=== PATIENT | female | born 1935 | race Caucasian/White ===

== ENCOUNTER 2017-06-04 18:29 | Emergency (ER) | payer OTHER ==
[~2017-06-04] VITALS: Ht 160 cm; Wt 56.7 kg
[~2017-06-04 18:29] MED LIST: ALENDRONATE SOD70 MG PO; AMLODIPINE BESYL5 MG PO; ATIVAN0.5 MG PO; ATORVASTATIN CA80 MG PO; ATROPINE PO; CIPRO500 MG PO; DIPHEN PO; FLONASE16 G1 BOTH NARES; FLUTICASONE PRO16 GM BOTH NARES; HYDROCHLOROTHIA25 MG PO; KEFLEX500 MG PO; LEXAPRO10 MG PO; LOSARTAN POTAS100 MG PO; METOPROLOL SUCC25 MG PO; METOPROLOL SUCC50 MG PO; NEURONTIN300 MG PO; NEXIUM40 MG PO; ST. JOSEPH ASPI81 MG PO; VALTREX50 MG/ML PO; VITAMIN D2000 INTUN PO; VITAMIN D22000 UNIT PO; VOLTAREN 1% GE100 GM TP
[2017-06-04 19:09] LABS: HEMATOCRIT 42.4 % (36.0-46.0); MCHC 33.7 G/DL (30.0-36.0); MCV 88.9 FL (83-99); MEAN PLAT.VOLUME 10.9 uM^3 (9.5-12.4); PLATELET COUNT 257 K/uL (156-360); RBC DIS.WIDTH-CV 13.2 % (11.8-14.6); RBC DIS.WIDTH-SD 42.9 % (39-53); RED BLOOD COUNT 4.77 M/uL (3.80-5.20); WHITE BLOOD COUNT 6.6 K/uL (4.1-10.2)
[2017-06-04 19:17] LABS: CHLORIDE 108 mEq/L (99-109); POTASSIUM 3.3 mEq/L (3.7-5.4); SODIUM 138 mEq/L (136-147)
[2017-06-04 19:19] LABS: GLUCOSE 106 mg/dL (70-99)
[2017-06-04 19:20] LABS: ANION GAP 7 MEQ/L (2-14)
[2017-06-04 19:21] LABS: TOTAL BILIRUBIN 0.3 mg/dL (0.0-1.0)
[2017-06-04 19:22] LABS: ALKALINE PHOSPHATASE 78 IU/L (3-129)
[2017-06-04 19:23] LABS: GFR ESTIMATE (CALCULATED) > 59 mL/min/
[2017-06-04 19:24] LABS: UREA NITROGEN (BUN) 14 mg/dL (9-23)
[2017-06-04 19:29] LABS: TROP-I INTERPRETATION NEGATIVE; TROPONIN-I < 0.01 ng/mL (0.0-0.30)
[2017-06-04 20:18] VITALS: BP 124/94
== END 2017-06-04 20:47 | disposition home or self-care (01) ==
LOC: EME 18:29
PROVIDERS: Nurse Practitioner Family
DX: I10 Essential (primary) hypertension (principal); R42 Dizziness and giddiness; R05 Cough; R09.82 Postnasal drip; Z79.82 Long term (current) use of aspirin
CPT/HCPCS: 80053; 84484; 85027; 93005; 99281; 99284

== ENCOUNTER 2017-10-05 06:09 | Inpatient (IN) | payer OTHER ==
[~2017-10-05] VITALS: Ht 160 cm; Wt 51.3 kg
[2017-10-05 07:07] LABS: BASOPHIL (%) 0.5 % (0-1); BASOPHIL COUNT 0.1 K/uL (0-0.1); EOSINOPHIL (%) 0.2 % (0-5); HEMATOCRIT 45.7 % (36.0-46.0); HEMOGLOBIN 15.9 G/DL (11.9-15.5); IMMATURE GRANULOCYTE (%) 0.4 % (0.0-0.7); LYMPHOCYTE (%) 9.9 % (15-42); LYMPHOCYTE COUNT 1.2 K/uL (1.0-2.8); MCH 30.5 PG (29.0-34.0); MCHC 34.8 G/DL (30.0-36.0); MCV 87.7 FL (83-99); MONOCYTE (%) 5.8 % (3-12); MONOCYTE COUNT 0.7 K/uL (0-0.8); NEUTROPHIL (%) 83.2 % (45-76); NEUTROPHIL COUNT 9.9 K/uL (1.8-6.4); PLATELET COUNT 354 K/uL (156-360); RBC DIS.WIDTH-CV 12.7 % (11.8-14.6); RBC DIS.WIDTH-SD 40.8 % (39-53); RED BLOOD COUNT 5.21 M/uL (3.80-5.20); WHITE BLOOD COUNT 11.9 K/uL (4.1-10.2)
[2017-10-05 07:14] LABS: INTER. NORMALIZED RATIO 1.1
[2017-10-05 07:42] LABS: ALBUMIN 4.4 G/DL (3.2-4.8); ALKALINE PHOSPHATASE 141 IU/L (3-129); ALT (GPT) 28 IU/L (3-49); AST (GOT) 32 IU/L (2-34); CHLORIDE 98 MEQ/L (99-109); CREATININE 0.6 MG/DL (0.6-1.3); GFR ESTIMATE (CALCULATED) > 59 mL/min/; GLUCOSE 140 mg/dL (70-99); LIPASE 38 U/L (1.0-51.0); SODIUM 136 MEQ/L (136-147); TOTAL BILIRUBIN 1.2 MG/DL (0.0-1.0); TOTAL PROTEIN 7.7 G/DL (6.4-8.3); UREA NITROGEN (BUN) 10 mg/dL (9-23)
[2017-10-05 09:03] LABS: APPEARANCE SL.HAZY ((CLEAR)); BILIRUBIN NEGATIVE; BLOOD NEGATIVE; COLOR YELLOW ((YELLOW)); GLUCOSE (STRIP) NEGATIVE; KETONES NEGATIVE; LEUKOCYTES TRACE; NITRITE NEGATIVE; PROTEIN (STRIP) 30; UROBILINOGEN 0.2 MG/DL (0.2-1.0)
[2017-10-05 09:11] LABS: BACTERIA RARE /HPF; CALCIUM OXALATE CRYSTALS 1+ /HPF; EPITHELIAL CELLS RARE /HPF; MUCUS TRACE /LPF; RED BLOOD CELLS 0-5 /HPF (0-5); WHITE BLOOD CELLS 0-5 /HPF (0-5)
[2017-10-05] MEDS ORDERED: CARBAMAZEPINE100 M2 PO (11:09)
[2017-10-05] MEDS ORDERED: ESCITALOPRAM OXA5 MG PO (11:10)
[2017-10-05 19:30] VITALS: BP 146/79
[2017-10-05 23:57] VITALS: BP 152/83
[2017-10-06 05:05] VITALS: BP 144/82
[2017-10-06 05:59] LABS: HEMATOCRIT 41.8 % (36.0-46.0); HEMOGLOBIN 13.6 G/DL (11.9-15.5); MCHC 32.5 G/DL (30.0-36.0); MCV 92.3 FL (83-99); PLATELET COUNT 343 K/uL (156-360); RBC DIS.WIDTH-CV 13.3 % (11.8-14.6); RBC DIS.WIDTH-SD 44.9 % (39-53); RED BLOOD COUNT 4.53 M/uL (3.80-5.20); WHITE BLOOD COUNT 13.6 K/uL (4.1-10.2)
[2017-10-06 07:12] LABS: CREATININE 0.6 MG/DL (0.6-1.3); GFR ESTIMATE (CALCULATED) > 59 mL/min/; GLUCOSE 185 mg/dL (70-99); POTASSIUM 3.8 MEQ/L (3.7-5.4); UREA NITROGEN (BUN) 9 mg/dL (9-23)
[2017-10-06 07:13] LABS: MAGNESIUM 1.7 mg/dl (1.3-2.7); PHOSPHORUS 2.5 mg/dL (2.5-4.9)
[2017-10-06 07:19] LABS: CHLORIDE 109 MEQ/L (99-109); SODIUM 143 MEQ/L (136-147)
[2017-10-06 08:15] VITALS: BP 144/89
[2017-10-06 11:42] VITALS: BP 130/71
[2017-10-06 16:14] VITALS: BP 156/99
[2017-10-06 20:15] VITALS: BP 124/88
[2017-10-06 22:47] VITALS: BP 178/94
[2017-10-07] VITALS (7 sets, daily range): BP systolic 133–191; BP diastolic 77–103
[2017-10-07 05:47] LABS: HEMATOCRIT 35.7 % (36.0-46.0); HEMOGLOBIN 11.7 G/DL (11.9-15.5); MCH 29.7 PG (29.0-34.0); MCHC 32.8 G/DL (30.0-36.0); MCV 90.6 FL (83-99); PLATELET COUNT 292 K/uL (156-360); RBC DIS.WIDTH-CV 13.5 % (11.8-14.6); RED BLOOD COUNT 3.94 M/uL (3.80-5.20); WHITE BLOOD COUNT 12.2 K/uL (4.1-10.2)
[2017-10-07 06:20] LABS: ALBUMIN 2.9 G/DL (3.2-4.8); ALT (GPT) 41 IU/L (3-49); AST (GOT) 23 IU/L (2-34); CHLORIDE 112 MEQ/L (99-109); CREATININE 0.4 MG/DL (0.6-1.3); DIRECT BILIRUBIN 0.2 mg/dL (0.0-0.3); GFR ESTIMATE (CALCULATED) > 59 mL/min/; GLUCOSE 129 mg/dL (70-99); POTASSIUM 3.4 MEQ/L (3.7-5.4); SODIUM 141 MEQ/L (136-147); UREA NITROGEN (BUN) 8 mg/dL (9-23)
[2017-10-07 06:21] LABS: ALKALINE PHOSPHATASE 73 IU/L (3-129); TOTAL BILIRUBIN 0.6 MG/DL (0.0-1.0); TOTAL PROTEIN 5.4 G/DL (6.4-8.3)
[2017-10-08 03:21] VITALS: BP 164/80; BP 167/80
[2017-10-08 06:02] LABS: BASOPHIL (%) 0.6 % (0-1); EOSINOPHIL (%) 0.8 % (0-5); EOSINOPHIL COUNT 0.1 K/uL (0-0.3); HEMATOCRIT 32.4 % (36.0-46.0); HEMOGLOBIN 10.9 G/DL (11.9-15.5); IMMATURE GRANULOCYTE (%) 0.3 % (0.0-0.7); LYMPHOCYTE (%) 10.9 % (15-42); LYMPHOCYTE COUNT 0.7 K/uL (1.0-2.8); MCH 30.6 PG (29.0-34.0); MCHC 33.6 G/DL (30.0-36.0); MONOCYTE (%) 8.9 % (3-12); MONOCYTE COUNT 0.6 K/uL (0-0.8); NEUTROPHIL (%) 78.5 % (45-76); PLATELET COUNT 248 K/uL (156-360); RBC DIS.WIDTH-CV 13.7 % (11.8-14.6); RBC DIS.WIDTH-SD 46.3 % (39-53); RED BLOOD COUNT 3.56 M/uL (3.80-5.20); WHITE BLOOD COUNT 6.3 K/uL (4.1-10.2)
[2017-10-08 06:27] LABS: CHLORIDE 114 MEQ/L (99-109); CREATININE 0.4 MG/DL (0.6-1.3); GFR ESTIMATE (CALCULATED) > 59 mL/min/; GLUCOSE 103 mg/dL (70-99); POTASSIUM 3.5 MEQ/L (3.7-5.4); SODIUM 142 MEQ/L (136-147); UREA NITROGEN (BUN) 9 mg/dL (9-23)
[2017-10-08 08:16] VITALS: BP 161/81
[2017-10-08 11:50] VITALS: BP 178/87
[2017-10-08 16:16] VITALS: BP 146/73
[2017-10-08 19:16] VITALS: BP 185/86
[2017-10-08 22:14] VITALS: BP 164/86
[2017-10-09 04:01] VITALS: BP 154/88
[2017-10-09 05:38] LABS: HEMATOCRIT 33.9 % (36.0-46.0); HEMOGLOBIN 10.9 G/DL (11.9-15.5); MCHC 32.2 G/DL (30.0-36.0); MCV 90.2 FL (83-99); PLATELET COUNT 261 K/uL (156-360); RBC DIS.WIDTH-CV 13.4 % (11.8-14.6); RBC DIS.WIDTH-SD 44.8 % (39-53); RED BLOOD COUNT 3.76 M/uL (3.80-5.20); WHITE BLOOD COUNT 5.1 K/uL (4.1-10.2)
[2017-10-09 06:06] LABS: CHLORIDE 110 MEQ/L (99-109); CREATININE 0.4 MG/DL (0.6-1.3); GFR ESTIMATE (CALCULATED) > 59 mL/min/; GLUCOSE 96 mg/dL (70-99); POTASSIUM 3.3 MEQ/L (3.7-5.4); SODIUM 142 MEQ/L (136-147); UREA NITROGEN (BUN) 6 mg/dL (9-23)
[2017-10-09 07:32] LABS: MAGNESIUM 1.9 mg/dl (1.3-2.7)
[2017-10-09 08:55] VITALS: BP 193/109
[2017-10-09 11:33] VITALS: BP 151/82
[2017-10-09 19:45] VITALS: BP 162/93
[2017-10-10] VITALS (7 sets, daily range): BP systolic 136–181; BP diastolic 74–97
[2017-10-10 05:53] LABS: BASOPHIL (%) 0.5 % (0-1); EOSINOPHIL (%) 3.5 % (0-5); EOSINOPHIL COUNT 0.2 K/uL (0-0.3); HEMATOCRIT 34.5 % (36.0-46.0); HEMOGLOBIN 11.4 G/DL (11.9-15.5); IMMATURE GRANULOCYTE (%) 0.3 % (0.0-0.7); LYMPHOCYTE COUNT 0.8 K/uL (1.0-2.8); MCH 29.7 PG (29.0-34.0); MCV 89.8 FL (83-99); MONOCYTE (%) 13.7 % (3-12); MONOCYTE COUNT 0.8 K/uL (0-0.8); PLATELET COUNT 252 K/uL (156-360); RBC DIS.WIDTH-CV 13.4 % (11.8-14.6); RBC DIS.WIDTH-SD 43.8 % (39-53); RED BLOOD COUNT 3.84 M/uL (3.80-5.20); WHITE BLOOD COUNT 5.9 K/uL (4.1-10.2)
[2017-10-10 06:22] LABS: CHLORIDE 106 MEQ/L (99-109); CREATININE 0.4 MG/DL (0.6-1.3); GFR ESTIMATE (CALCULATED) > 59 mL/min/; GLUCOSE 92 mg/dL (70-99); POTASSIUM 3.9 MEQ/L (3.7-5.4); SODIUM 139 MEQ/L (136-147); UREA NITROGEN (BUN) 6 mg/dL (9-23)
[2017-10-11] VITALS (7 sets, daily range): BP systolic 137–161; BP diastolic 70–94
[2017-10-11 06:02] LABS: HEMATOCRIT 38.6 % (36.0-46.0); HEMOGLOBIN 12.8 G/DL (11.9-15.5); MCH 29.5 PG (29.0-34.0); MCHC 33.2 G/DL (30.0-36.0); MCV 88.9 FL (83-99); PLATELET COUNT 323 K/uL (156-360); RBC DIS.WIDTH-SD 42.4 % (39-53); RED BLOOD COUNT 4.34 M/uL (3.80-5.20)
[2017-10-11 06:24] LABS: CHLORIDE 105 MEQ/L (99-109); CREATININE 0.5 MG/DL (0.6-1.3); GFR ESTIMATE (CALCULATED) > 59 mL/min/; GLUCOSE 108 mg/dL (70-99); POTASSIUM 3.4 MEQ/L (3.7-5.4); SODIUM 141 MEQ/L (136-147); UREA NITROGEN (BUN) 8 mg/dL (9-23)
[2017-10-12 03:19] VITALS: BP 130/70
[2017-10-12 06:30] LABS: HEMATOCRIT 39.5 % (36.0-46.0); HEMOGLOBIN 12.7 G/DL (11.9-15.5); MCHC 32.2 G/DL (30.0-36.0); MCV 90.2 FL (83-99); PLATELET COUNT 274 K/uL (156-360); RBC DIS.WIDTH-CV 13.2 % (11.8-14.6); RBC DIS.WIDTH-SD 43.1 % (39-53); RED BLOOD COUNT 4.38 M/uL (3.80-5.20); WHITE BLOOD COUNT 6.2 K/uL (4.1-10.2)
[2017-10-12 06:56] LABS: CHLORIDE 108 MEQ/L (99-109); CREATININE 0.5 MG/DL (0.6-1.3); GFR ESTIMATE (CALCULATED) > 59 mL/min/; GLUCOSE 91 mg/dL (70-99); POTASSIUM 4.1 MEQ/L (3.7-5.4); SODIUM 140 MEQ/L (136-147); UREA NITROGEN (BUN) 6 mg/dL (9-23)
[2017-10-12 08:20] VITALS: BP 134/77
[2017-10-12 16:00] VITALS: BP 138/67
[2017-10-12 23:46] VITALS: BP 133/63
[2017-10-13 06:54] LABS: HEMATOCRIT 35.8 % (36.0-46.0); HEMOGLOBIN 11.8 G/DL (11.9-15.5); MCH 29.7 PG (29.0-34.0); MCV 90.2 FL (83-99); PLATELET COUNT 282 K/uL (156-360); RBC DIS.WIDTH-CV 13.5 % (11.8-14.6); RBC DIS.WIDTH-SD 43.9 % (39-53); RED BLOOD COUNT 3.97 M/uL (3.80-5.20); WHITE BLOOD COUNT 6.6 K/uL (4.1-10.2)
[2017-10-13 07:16] LABS: CHLORIDE 108 MEQ/L (99-109); CREATININE 0.6 MG/DL (0.6-1.3); GFR ESTIMATE (CALCULATED) > 59 mL/min/; GLUCOSE 79 mg/dL (70-99); POTASSIUM 3.7 MEQ/L (3.7-5.4); SODIUM 140 MEQ/L (136-147); UREA NITROGEN (BUN) 8 mg/dL (9-23)
[2017-10-13 08:10] VITALS: BP 113/61
[2017-10-13] MEDS ORDERED: ADULT FOLDING1 EACH MC (08:27)
[2017-10-13] MEDS ORDERED: ULTRAM50 MG PO (08:27)
[2017-10-13] MEDS ORDERED: TOPROL XL100 MG PO (08:27)
[2017-10-13] MEDS ORDERED: NORVASC10 MG PO (08:27)
== END 2017-10-13 11:00 | disposition home health service (06) | DRG 329 ==
LOC: EME 06:09 → SDC 13:54 → 4EAST 17:44 → 2SOUTH 17:44 → ENRESERV 17:49 → 4EAST 19:34 → ENRESERV 10-11 14:59 → 2EAST 10-11 17:40
PROVIDERS: Emergency Medicine; Surgery
DX: K91.89 Other postprocedural complications and disorders of digestive system (principal); K56.50 Intestinal adhesions [bands], unspecified as to partial versus complete obstruction; K56.2 Volvulus; Y83.2 Surgical operation with anastomosis, bypass or graft as the cause of abnormal reaction of the patient, or of later complication, without mention of misadventure at the time of the procedure; E86.0 Dehydration; E87.6 Hypokalemia; K56.7 Ileus, unspecified; K83.1 Obstruction of bile duct; K65.9 Peritonitis, unspecified; I67.1 Cerebral aneurysm, nonruptured; D69.1 Qualitative platelet defects; E06.3 Autoimmune thyroiditis; I10 Essential (primary) hypertension; G89.29 Other chronic pain; I25.10 Atherosclerotic heart disease of native coronary artery without angina pectoris; K21.9 Gastro-esophageal reflux disease without esophagitis; E78.5 Hyperlipidemia, unspecified; R18.8 Other ascites; N28.1 Cyst of kidney, acquired; M79.2 Neuralgia and neuritis, unspecified; K44.9 Diaphragmatic hernia without obstruction or gangrene; H53.2 Diplopia; M81.0 Age-related osteoporosis without current pathological fracture; F32.9 Major depressive disorder, single episode, unspecified; F41.9 Anxiety disorder, unspecified; M19.90 Unspecified osteoarthritis, unspecified site; R63.4 Abnormal weight loss; Z79.82 Long term (current) use of aspirin; Z80.0 Family history of malignant neoplasm of digestive organs; Z82.3 Family history of stroke; Z86.73 Personal history of transient ischemic attack (TIA), and cerebral infarction without residual deficits; Z90.710 Acquired absence of both cervix and uterus
CPT/HCPCS: 71045; 74177; 80048; 80053; 80076; 81003; 83690; 83735; 84100; 85025; 85027; 85610; 88307; 93005; 94799; 99202; 99281; 99285; J0131; J0330; J0360; J1644; J2405; J2710; J2765; J3010; J3480; J7030; J7040; J7643; P9047; S0074

== ENCOUNTER 2017-11-24 18:57 | Emergency (ER) | payer OTHER ==
[~2017-11-24] VITALS: Ht 160 cm; Wt 50.0 kg
[~2017-11-24 18:57] MED LIST changes: +ADULT FOLDING1 EACH MC; +CARBAMAZEPINE100 M2 PO; +ESCITALOPRAM OXA5 MG PO; +NORVASC10 MG PO; +TOPROL XL100 MG PO; +ULTRAM50 MG PO
[2017-11-24 19:49] LABS: HEMATOCRIT 39.7 % (36.0-46.0); HEMOGLOBIN 13.2 G/DL (11.9-15.5); MCH 29.4 PG (29.0-34.0); MCHC 33.2 G/DL (30.0-36.0); MCV 88.4 FL (83-99); PLATELET COUNT 269 K/uL (156-360); RBC DIS.WIDTH-SD 45.5 % (39-53); RED BLOOD COUNT 4.49 M/uL (3.80-5.20); WHITE BLOOD COUNT 13.7 K/uL (4.1-10.2)
[2017-11-24 19:54] LABS: APPEARANCE CLEAR ((CLEAR)); BILIRUBIN NEGATIVE; BLOOD NEGATIVE; COLOR YELLOW ((YELLOW)); GLUCOSE (STRIP) NEGATIVE; KETONES NEGATIVE; LEUKOCYTES NEGATIVE; NITRITE NEGATIVE; PROTEIN (STRIP) 30; SPECIFIC GRAVITY 1.011 (1.000-1.030); UCUL ADDED? NO
[2017-11-24 19:58] LABS: CHLORIDE 100 mEq/L (99-109); POTASSIUM 3.3 mEq/L (3.7-5.4); SODIUM 137 mEq/L (136-147)
[2017-11-24 20:00] LABS: GLUCOSE 116 mg/dL (70-99)
[2017-11-24 20:02] LABS: TOTAL BILIRUBIN 0.7 mg/dL (0.0-1.0)
[2017-11-24 20:04] LABS: ALKALINE PHOSPHATASE 214 IU/L (3-129); CREATININE 0.7 mg/dL (0.6-1.3); GFR ESTIMATE (CALCULATED) > 59 mL/min/
[2017-11-24 20:05] LABS: UREA NITROGEN (BUN) 11 mg/dL (9-23)
[2017-11-24 20:06] LABS: AST (GOT) 181 IU/L (2-34)
[2017-11-24 20:07] LABS: ALT (GPT) 110 IU/L (3-49)
[2017-11-24] MEDS ORDERED: ZOFRAN4 MG PO (23:45)
[2017-11-25 00:19] VITALS: BP 109/70
== END 2017-11-25 00:23 | disposition home or self-care (01) ==
LOC: EME 18:57
PROVIDERS: Physician Assistant
DX: R11.2 Nausea with vomiting, unspecified (principal); R74.0 Nonspecific elevation of levels of transaminase and lactic acid dehydrogenase [LDH]; I10 Essential (primary) hypertension; E78.5 Hyperlipidemia, unspecified; K21.9 Gastro-esophageal reflux disease without esophagitis; F41.9 Anxiety disorder, unspecified; F32.9 Major depressive disorder, single episode, unspecified; Z79.82 Long term (current) use of aspirin; Z90.49 Acquired absence of other specified parts of digestive tract; Z90.710 Acquired absence of both cervix and uterus; Z86.79 Personal history of other diseases of the circulatory system
CPT/HCPCS: 74177; 80053; 81003; 83605; 85027; 87040; 87077; 87801; 99281; 99284; J7030